=== PATIENT | female | born 1945 | race Caucasian/White ===

== ENCOUNTER 2017-03-11 07:15 | Day surgery (SDC) | payer MEDICARE ==
[~2017-03-11] VITALS: Ht 162.6 cm; Wt 60.0 kg
[~2017-03-11 07:15] MED LIST: Sodium Chloride LOK Flush 10 mL Syringe IV PRN; fentaNYL-PF 50 mCg/mL 2 mL Inj IVPUSH PRN
[2017-03-11 07:51] VITALS: BP 134/79; PULSE 65; RESP 16; O2SAT 100
[2017-03-11] MEDS ORDERED: PRD5T PO (07:55)
[2017-03-11] MEDS: 0.9% Sodium Chloride 1,000 ML IV PRN ×2 (08:04→08:21)
[2017-03-11 08:35] VITALS: BP 104/61; PULSE 68; RESP 12; O2SAT 98
[2017-03-11 08:44] VITALS: BP 106/60; PULSE 64; RESP 12; O2SAT 98
[2017-03-11 08:51] VITALS: BP 116/74; PULSE 67; RESP 14; O2SAT 100
--- NOTE | 2017-03-11 09:00 | ENDO ---
[address] [address] ENDOSCOPY PROCEDURE PATIENT: JOLYNN JOHNSTON : 1945 MR#: [id number] ADMIT: 03/11/2017 JOB ID: [id number] DATE OF SERVICE: 03/11/2017 PRIMARY PROVIDER: Martin Soler MD. PROCEDURE: Colonoscopy. INDICATIONS: A 72-year-old female with a history of cecal inflammation of uncertain etiology. She had a CAT scan last year which made a comment about possible thickening in the cecum. Early repeat colonoscopy was recommended. The patient, however, had a lot of other issues going on and delayed the procedure until today. She reports that she is doing very well from a GI standpoint and has normal bowel movements. No specific concerns. SEDATION: 1. Versed 4 mg. 2. Fentanyl 75 mcg. COMPLICATIONS: None identified. BOWEL PREPARATION: Very adequate. PROCEDURE INFORMATION: After the risks and benefits were explained, written and verbal informed consent was obtained. The patient was brought into the endoscopy suite and placed into the left lateral decubitus position. Sedation was achieved as above. A digital rectal examination accomplished. No significant pathology appreciated. The scope was introduced into the rectum and advanced under direct visualization to the level of the cecum, as identified by the appendiceal orifice and ileocecal valve. The terminal ileum was briefly accessed. The scope then slowly withdrawn to carefully examine the mucosa for any defects or lesions. Multiple direct views were made through the dentate line for exclusion of pathology. The colon was decompressed. The scope removed from the patient who tolerated the procedure well. FINDINGS: No significant polyps, mass lesions, or inflammatory features identified throughout. Specifically, there was absolutely no element of inflammation seen anywhere in the cecum, ileocecal valve, terminal ileum, or right colon for that matter. The terminal ileum appeared visually normal. ENDOSCOPIC DIAGNOSES: Visually normal appearing colonoscopy. RECOMMENDATIONS: Consider repeat colonoscopy in five years' time considering past abnormalities identified and inflammation seen at histology, sooner on a p.r.n. basis.
== END 2017-03-11 23:59 | disposition home or self-care (01) ==
LOC: END 07:15
PROVIDERS: ATTEND Internal Medicine Gastroenterology
DX: Z12.11 Encounter for screening for malignant neoplasm of colon (principal); J45.909 Unspecified asthma, uncomplicated; Z79.52 Long term (current) use of systemic steroids
CPT/HCPCS: G0121; G0500; J2250; J3010; J7030